=== PATIENT | female | born 1940 | race Asian ===

== ENCOUNTER → 2019-01-29 13:37 | Outpatient (CLI) | payer MEDICARE, OTHER, SELFPAY ==
--- NOTE | 2019-01-29 | DI.RAD.S_ITS ---
PROCEDURE: FL BARIUM SWALLOW W SPEECH INDICATIONS: Dysphagia, unspecified TECHNIQUE: Examination was conducted in conjunction with speech pathology per standard protocol. In the lateral projection, filming was performed of the patient swallowing. AP projection filming may also be performed with patient swallowing. COMPARISON: None. FINDINGS: Function: The oral preparatory phase appears normal, with proper containment. The subsequent oral propulsive phase, pharyngeal phase, and esophageal phase of swallowing also appear normal with all proffered substances. No laryngotracheal penetration or aspiration. No pathologic vallecular pooling. Morphology: No cricopharyngeal bar is identified. No cervical esophageal webs. No Zenker's diverticulum. No strictures. IMPRESSION: No tracheal aspiration Dictated by: Rambo Newsome M.D. on 01/29/2019 at 15:41 Approved by: Rambo Newsome M.D. on 01/29/2019 at 15:41
--- NOTE | 2019-02-13 18:07 | ST.SWALLOW ---
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 Reason for Referral Dysphagia Setting Setting Outpatient Care Patient Information Identification Type Name,ID Card Patient History This 79-yr-old female presented with complaints of frequent coughing and sticking sensation with both solids and liquids, which has been occurring for approximately 1- 2 months and has resulted in reduced oral intake. No medical records were available; therefore case history was obtained by the pt who reported heart attack in Dec 2018 followed by stent placement at [facility]. She stated that swallow problems were present prior to the heart attack but she has become more aware of them since the stent placement . She also reported history of thyroid dysfunction. Today she two Band-Aids were visible on the anterior and right side of her neck, where she received injection treatment for thyroid the other day at [facility]. The pt also receives dialysis and did have a treatment earlier today. She denied history of stroke, pneumonia and fear of choking. Subjective Observations The pt arrived on time, provided case history, and was pleasantly conversant and cooperative throughout the evaluation. Patient Positioning Position View Lateral Imaging Lateral View Textures Administered Trials Presented Thin Liquid via Spoon,Thin Liquid via Cup,[place] Liquid via Spoon,[place] Liquid via Cup,Honey Liquid via Spoon, Dysphagia Blenderized Textures ,Regular Textures Oral Phase Source: MBSIMP (TM) (C) Bolus Specific Scoring Grid Lip Closure WFL Tongue Control During Bolus Hold Mild Impairment Bolus Prep/Mastication Mild Impairment Bolus Transport/Lingual Motion Moderate Impairment A/P Lingual Propulsion Delay Yes Oral Residue Moderate Impairment Residue Clearing WFL Nasal Regurgitation No Pharyngeal Phase Source: MBSIMP (TM) (C) Bolus Specific Scoring Grid Delayed Initiation of Pharyngeal Swallow Minimal in 2 trials (pudding, cookie) Number of Seconds Delayed (seconds) 2-3 Soft Palate Elevation No Impairment (WNL) Tongue Base Strength/Range of Motion Mild Impairment Residue Along the Tongue Base Yes: Mild Clearance of Residue Along Tongue Base WFL Laryngeal Elevation WFL Anterior Hyoid Movement WFL Epiglottic Range of Motion No Impairment (WNL) Vallecular Residue Yes: Mild-mod Laryngeal Vestibular Closure Minimal Impairment Pharyngeal Stripping Wave Mild Impairment Posterior Pharyngeal Wall Residue Yes: Trace to mild Clearance of Posterior Pharyngeal Wall Minimal Impairment Residue Upper Esophageal Sphincter Opening No Impairment (WNL) Residue in the Pyriform Sinuses Yes: Trace to mild Clearance of Residue in the Pyriform Minimal Impairment Sinuses Pharyngoesophageal Backflow Observed No Additional Pharyngeal Phase Observations Mildly reduced tatum base traction and pharyngeal stripping wave contributing to trace to mild pharyngeal residue. Swallow trigger was timely in all but 2 trials, one of pudding and one of cookie, in which bolus escaped to or nearly to valecula prior to swallow initiation. Possible diverticulum? Prominent osteophytes were present but did not impede bolus flow. No laryngeal penetration or tracheal aspiriation observed. A/P View Clinical Impressions Dysphagia Type Mild oropharyngeal dysphagia Findings Mild oropharyngeal dysphagia characterized by reduced bolus prep and a/p propulsion, mild -moderate oral residue, and trace-mild pharyngeal residue. No laryngeal penetration or tracheal aspiration observed. Upon close review of MBSS video, a consistent appearance of a circular shadow was observed at left side of larynx. A still image was presented to one of the hospital's radiologists, who was unable to determine whether this was a structural abnormality or not. He recommended soft tissue neck radiography for further assessment and clearer viewing . The pt's mild swallow deficits appear to result from mildly reduced strength/coordination of pharyngeal musculature consistent with pt's age. She may receive some benefit from outpatient dysphagia therapy to strengthen musculature, but no clear etiology for pt's symptoms were revealed, and she did not report any sticking sensation or other difficulty during the study. Rehabilitation Potential Fair Recommendations Diet Liquids Order Thin Diet Order Regular Medication Recommendation As Tolerated Aspiration Precautions Recommended Precautions Upright at 90 Degrees,Small Bites/Sips,Double Swallow Treatment Plan Additional Therapy Recommendations Pt may benefit from short course of outpatient dysphagia therapy Recommended Referrals Other Additional Recommended Referrals Soft tissue neck radiography Compensatory Strategies Recommendations Sitting Upright (90 deg),Small Bites and Sips Additional Compensatory Strategies General aspiration precautions Recommended Short Term Goals If pt to receive outpatient therapy, recommend exercises to increase strength, coordination, and/or ROM of swallow musculature. 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 Placement Recommendation After Discharge Home
--- NOTE | 2019-02-13 18:18 | ST.SWALLOW ---
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 Reason for Referral Dysphagia Setting Setting Outpatient Care Patient Information Identification Type Name,ID Card Patient History This 79-yr-old female presented with complaints of frequent coughing and sticking sensation with both solids and liquids, which has been occurring for approximately 1- 2 months and has resulted in reduced oral intake. No medical records were available; therefore case history was obtained by the pt who reported heart attack in Dec 2018 followed by stent placement at [facility]. She stated that swallow problems were present prior to the heart attack but she has become more aware of them since the stent placement . She also reported history of thyroid dysfunction. Today she two Band-Aids were visible on the anterior and right side of her neck, where she received injection treatment for thyroid the other day at [facility]. The pt also receives dialysis and did have a treatment earlier today. She denied history of stroke, pneumonia and fear of choking. Subjective Observations The pt arrived on time, provided case history, and was pleasantly conversant and cooperative throughout the evaluation. Patient Positioning Position View Lateral Imaging Lateral View Textures Administered Trials Presented Thin Liquid via Spoon,Thin Liquid via Cup,[place] Liquid via Spoon,[place] Liquid via Cup,Honey Liquid via Spoon, Dysphagia Blenderized Textures ,Regular Textures Oral Phase Source: MBSIMP (TM) (C) Bolus Specific Scoring Grid Lip Closure WFL Tongue Control During Bolus Hold Mild Impairment Bolus Prep/Mastication Mild Impairment Bolus Transport/Lingual Motion Moderate Impairment A/P Lingual Propulsion Delay Yes Oral Residue Moderate Impairment Residue Clearing WFL Nasal Regurgitation No Pharyngeal Phase Source: MBSIMP (TM) (C) Bolus Specific Scoring Grid Delayed Initiation of Pharyngeal Swallow Minimal in 2 trials (pudding, cookie) Number of Seconds Delayed (seconds) 2-3 Soft Palate Elevation No Impairment (WNL) Tongue Base Strength/Range of Motion Mild Impairment Residue Along the Tongue Base Yes: Mild Clearance of Residue Along Tongue Base WFL Laryngeal Elevation WFL Anterior Hyoid Movement WFL Epiglottic Range of Motion No Impairment (WNL) Vallecular Residue Yes: Mild-mod Laryngeal Vestibular Closure Minimal Impairment Pharyngeal Stripping Wave Mild Impairment Posterior Pharyngeal Wall Residue Yes: Trace to mild Clearance of Posterior Pharyngeal Wall Minimal Impairment Residue Upper Esophageal Sphincter Opening No Impairment (WNL) Residue in the Pyriform Sinuses Yes: Trace to mild Clearance of Residue in the Pyriform Minimal Impairment Sinuses Pharyngoesophageal Backflow Observed No Additional Pharyngeal Phase Observations Mildly reduced tongue base traction and pharyngeal stripping wave contributing to trace to mild pharyngeal residue. Swallow trigger was timely in all but 2 trials, one of pudding and one of cookie, in which bolus escaped to or nearly to valecula prior to swallow initiation. Prominent osteophytes were present but did not impede bolus flow. No laryngeal penetration or tracheal aspiration observed. A/P View Clinical Impressions Dysphagia Type Mild oropharyngeal dysphagia Findings Mild oropharyngeal dysphagia characterized by reduced bolus prep and a/p propulsion, mild -moderate oral residue, and trace-mild pharyngeal residue. No laryngeal penetration or tracheal aspiration observed. Upon close review of MBSS video, a consistent appearance of a circular shadow was observed at left side of larynx. A still image was presented to one of the hospital's radiologists, who was unable to determine whether this was a structural abnormality or not. He recommended soft tissue neck radiography for further assessment and clearer viewing . Question if this is related to pt's thyroid dysfunction/ treatment. The pt's mild swallow deficits appear to result from mildly reduced strength/coordination of pharyngeal musculature consistent with pt's age. She may receive some benefit from outpatient dysphagia therapy to strengthen musculature, but no clear etiology for pt's symptoms were revealed, and she did not report any sticking sensation or other difficulty during the study. Rehabilitation Potential Fair Recommendations Diet Liquids Order Thin Diet Order Regular Medication Recommendation As Tolerated Aspiration Precautions Recommended Precautions Upright at 90 Degrees,Small Bites/Sips,Double Swallow Treatment Plan Additional Therapy Recommendations Pt may benefit from short course of outpatient dysphagia therapy Recommended Referrals Other Additional Recommended Referrals Soft tissue neck radiography Compensatory Strategies Recommendations Sitting Upright (90 deg),Small Bites and Sips Additional Compensatory Strategies General aspiration precautions Recommended Short Term Goals If pt to receive outpatient therapy, recommend exercises to increase strength, coordination, and/or ROM of swallow musculature. 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 Placement Recommendation After Discharge Home
== END ==
PROVIDERS: PCP Family Medicine; Visit Provider Family Medicine
DX: R13.10 Dysphagia, unspecified (principal)
CPT/HCPCS: 74230; 92611